=== PATIENT | male | born 1985 | race Caucasian/White ===

== ENCOUNTER 2018-02-03 16:54 | Emergency (ER) | payer MEDICAID ==
[2018-02-03] MEDS: FAMOTIDINE 20 MG TAB PO (19:44)
[2018-02-03] MEDS: EPINEPHrine 1 MG INJ SC (19:44)
[2018-02-03] MEDS: DIPHENHYDRAMINE 50 MG INJ IM (19:45)
[2018-02-03] MEDS: METHYLPREDNISOLONE 125 MG INJ IM (19:45)
== END 2018-02-03 20:37 | disposition home or self-care (01) ==
LOC: FTE 16:54 → E/R 20:37
DX: L50.0 Allergic urticaria (principal)
CPT/HCPCS: 96372; 99284-25